=== PATIENT | female | born 1960 | race African-American/Black ===

== ENCOUNTER 2017-02-05 11:36 | Emergency (ER) | payer BC, MEDICAID ==
[~2017-02-05] VITALS: Ht 152.4 cm; Wt 45.0 kg
[2017-02-05] MEDS ORDERED: KETOROLAC 60MG/2ML VIAL IM ONE (13:00)
[2017-02-05] MEDS ORDERED: MECLIZINE 25MG TABLET PO ONE (13:00)
[2017-02-05 13:24] LABS: BASOPHILS % 0.6 % (0.0-2.0); EOSINOPHILS % 0.9 % (0.0-5.0); HEMATOCRIT. 36.8 % (36.0-48.0); HEMOGLOBIN. 12.3 g/dL (12.0-16.0); LYMPHOCYTES % 35.7 % (20.0-50.0); MEAN CORPUSCULAR HEMOGLOBIN 30.8 pg (28.0-32.0); MEAN PLATELET VOLUME 7.4 fl (7.4-10.4); MONOCYTES % 10.5 % (2.0-8.0); NEUTROPHILS % 52.3 % (40.0-76.0); PLATELET 155 x1000/uL (130-400); RED CELL DISTRIBUTION WIDTH 13.8 % (11.6-14.6)
[2017-02-05 13:28] LABS: CHLORIDE 103 mEq/L (98-107)
[2017-02-05] MEDS ORDERED: TRAMADOL 50MG TABLET PO ONE (13:30)
[2017-02-05 13:36] LABS: CARBON DIOXIDE 30 mEq/L (21-32)
[2017-02-05 14:32] LABS: KETONES URINE NEGATIVE (NEGATIVE); LEUKOCYTE ESTERASE URINE NEGATIVE (NEGATIVE); NITRITE URINE NEGATIVE (NEGATIVE); OCCULT BLOOD URINE NEGATIVE (NEGATIVE); PROTEIN URINE NEGATIVE (NEGATIVE); SPECIFIC GRAVITY URINE 1.044 (1.005-1.030); UROBILINOGEN URINE 0.2 E.U./dL (0.2-1.0)
[2017-02-05 14:37] LABS: CLARITY URINE SL HAZY (CLEAR); COLOR URINE YELLOW (YELLOW)
[2017-02-05] MEDS ORDERED: SODIUM CHLORIDE 0.9% 1,000 ML IV ONE (15:09)
[2017-02-05 15:15] VITALS: BP 135/86
[2017-02-05] MEDS ORDERED: INSULIN REGULAR (HUMULIN R) 300UNITS/3ML SUBCUT ONE (15:15)
== END 2017-02-05 18:35 | disposition home or self-care (01) ==
LOC: ER 13:56
DX: B02.9 Zoster without complications (principal); H81.10 Benign paroxysmal vertigo, unspecified ear; M25.562 Pain in left knee; F17.200 Nicotine dependence, unspecified, uncomplicated; I10 Essential (primary) hypertension; E11.9 Type 2 diabetes mellitus without complications
CPT/HCPCS: 36415; 73562; 80053; 81001; 81025; 82962; 85025; 96360; 96361; 96372; 99285; J1815; J7030; Z7610; J8597

== ENCOUNTER 2017-07-30 07:50 | Emergency (ER) | payer SELFPAY ==
[~2017-07-30] VITALS: Ht 152.4 cm; Wt 53.0 kg
[2017-07-30] MEDS ORDERED: TRAMADOL 50MG TABLET PO ONE (08:15)
[2017-07-30 08:55] VITALS: BP 146/72
== END 2017-07-30 09:29 | disposition home or self-care (01) ==
LOC: ER 08:55
DX: M77.31 Calcaneal spur, right foot (principal); F41.9 Anxiety disorder, unspecified; I10 Essential (primary) hypertension; E11.9 Type 2 diabetes mellitus without complications; Z98.890 Other specified postprocedural states
CPT/HCPCS: 73630; 99284; Z7610

== ENCOUNTER 2018-03-14 13:56 | Emergency (ER) | payer SELFPAY | END 2018-03-14 16:32 | disposition left against medical advice (07) | LOC: ER 13:56 | DX: M79.601 Pain in right arm (principal); Z53.21 Procedure and treatment not carried out due to patient leaving prior to being seen by health care provider ==

== ENCOUNTER 2018-10-19 15:54 | Inpatient (IN) | payer OTHER ==
[~2018-10-19] VITALS: Ht 157.5 cm; Wt 51.7 kg
[2018-10-19] MEDS ORDERED: KETOROLAC 30MG/ML VIAL IV STA (23:01)
[2018-10-19] MEDS ORDERED: SODIUM CHLORIDE 0.9% 1,000 ML IV ONE (23:01)
[2018-10-19 23:32] LABS: BASOPHILS % 0.4 % (0.0-2.0); HEMATOCRIT. 39.1 % (36.0-48.0); HEMOGLOBIN. 13.3 g/dL (12.0-16.0); LYMPHOCYTES % 7.8 % (20.0-50.0); MEAN CORPUSCULAR HEMOGLOBIN 31.4 pg (28.0-32.0); MEAN CORPUSCULAR VOLUME 92.3 fL (81.0-99.0); MEAN PLATELET VOLUME 7.5 fl (7.4-10.4); NEUTROPHILS % 84.8 % (40.0-76.0); PLATELET 199 x1000/uL (130-400); RED BLOOD CELL COUNT 4.24 mill/uL (4.2-5.4)
[2018-10-19 23:37] LABS: CHLORIDE 103 mEq/L (98-107)
[2018-10-19 23:46] LABS: BETA HYDROXYBUTYRATE 1.6 mMol/L (0.0-0.3)
[2018-10-20] MEDS ORDERED: PIPERACILLIN/TAZOBACTAM 3.375GM/50ML PREMIX IV ONE (01:15)
[2018-10-20 01:52] LABS: CLARITY URINE TURBID (CLEAR); COLOR URINE YELLOW (YELLOW); KETONES URINE 3+ (NEGATIVE); LEUKOCYTE ESTERASE URINE 1+ (NEGATIVE); NITRITE URINE NEGATIVE (NEGATIVE); OCCULT BLOOD URINE 2+ (NEGATIVE); PH URINE 5.5 (4.5-8.0); PROTEIN URINE 1+ (NEGATIVE); UROBILINOGEN URINE 0.2 E.U./dL (0.2-1.0)
[2018-10-20] MEDS ORDERED: PIPERACILLIN/TAZ 3.375G PREMIX 50 ML IV NR (02:15)
[2018-10-20] MEDS ORDERED: IOHEXOL-300 100 ML BOTTLE ONE (02:24)
[2018-10-20] MEDS ORDERED: FENTANYL CITRATE/PF 50MCG/ML 2ML VIAL ONE ×3 (05:35→07:14)
[2018-10-20] MEDS ORDERED: MIDAZOLAM HCL 2 MG/2 ML VIAL ONE ×2 (05:35→07:14)
[2018-10-20] MEDS ORDERED: PROPOFOL 200MG/20ML VIAL IV ONE ×2 (05:35→07:14)
[2018-10-20] MEDS ORDERED: ROCURONIUM BROMIDE 10MG/ML VIAL 5ML IV ONE (05:36)
[2018-10-20] MEDS ORDERED: LIDOCAINE HCL/PF 1% 10 MG/ML 5ML VIAL ONE (05:36)
[2018-10-20] MEDS ORDERED: FENTANYL CITRATE/PF 50MCG/ML 2ML VIAL IV PRN (05:45)
[2018-10-20] MEDS ORDERED: HYDROMORPHONE HCL/PF 2MG/ML CPJ IV PRN ×2 (05:45→07:45)
[2018-10-20] MEDS ORDERED: ONDANSETRON HCL 4MG/2ML INJ IV PRN ×3 (05:45→07:45)
[2018-10-20] MEDS ORDERED: SKIN ADHESIVE 0.7 GM EA TOP ONE (06:03)
[2018-10-20] MEDS ORDERED: BUPIVACAINE HCL 0.5% (5MG/ML) 50ML ONE (06:03)
[2018-10-20] MEDS ORDERED: DEXT 5%/0.45% NACL KCL 20MEQ/L 1,000 ML IV SCH (06:19)
[2018-10-20] MEDS ORDERED: MORPHINE SULFATE 2 MG/ML CPJ (NOT FOR IM USE) IV PRN (06:30)
[2018-10-20] MEDS ORDERED: HYDROCODONE/ACETAMINOPHEN 5/325MG TABLET PO PRN ×3 (06:30→06:45)
[2018-10-20] MEDS ORDERED: MORPHINE SULFATE 4 MG/ML CPJ (NOT FOR IM USE) IV PRN ×3 (06:30→06:45)
[2018-10-20] MEDS ORDERED: NEOSTIGMINE METHYLSULFATE 1MG/ML 10 ML VIAL ONE (06:56)
[2018-10-20] MEDS ORDERED: GLYCOPYRROLATE 0.2 MG/ML 2ML VIAL ONE (06:56)
[2018-10-20 08:00] VITALS: BP 126/66
[2018-10-20 10:00] VITALS: BP 126/66
[2018-10-20 12:00] VITALS: BP 95/48
[2018-10-20] MEDS ORDERED: DEXTROSE 50% WATER 50ML SYRINGE IV PRN (14:00)
[2018-10-20] MEDS ORDERED: SODIUM CHLORIDE 0.9% INJ 3ML FLUSH IVF SCH (14:00)
[2018-10-20] MEDS: DEXT 5%/0.45% NACL KCL 20MEQ/L 1,000 ML IV SCH (15:22)
[2018-10-20] MEDS: PIPERACILLIN/TAZ 3.375G PREMIX 50 ML IV SCH ×2 (15:22→21:07)
[2018-10-20] MEDS: SODIUM CHLORIDE 0.9% INJ 3ML FLUSH IVF SCH ×2 (15:31→22:17)
[2018-10-20 16:43] LABS: HEMATOCRIT 38.6 % (36.0-48.0); HEMOGLOBIN 12.9 g/dL (12.0-16.0); MEAN CORPUSCULAR HEMOGLOBIN 31.6 pg (28.0-32.0); MEAN CORPUSCULAR VOLUME 94.3 fL (81.0-99.0); PLATELET 173 x1000/uL (130-400); RED BLOOD CELL COUNT 4.09 mill/uL (4.2-5.4); RED CELL DISTRIBUTION WIDTH 12.9 % (11.6-14.6)
[2018-10-20 16:57] LABS: CHLORIDE 106 mEq/L (98-107)
[2018-10-20] MEDS: BLOOD SUGAR DIAGNOSTIC STRIP TEST SCH ×2 (17:19→21:06)
[2018-10-20] MEDS: INSULIN LISPRO 100 UNITS/ML SUBCUT SCH ×2 (17:31→22:13)
[2018-10-20] MEDS: HYDROCODONE/ACETAMINOPHEN 5/325MG TABLET PO PRN (21:07)
[2018-10-21] VITALS: BP 104/52
[2018-10-21 04:00] VITALS: BP 87/47
[2018-10-21] MEDS: PIPERACILLIN/TAZ 3.375G PREMIX 50 ML IV SCH ×3 (05:40→21:33)
[2018-10-21] MEDS: SODIUM CHLORIDE 0.9% INJ 3ML FLUSH IVF SCH ×3 (05:41→21:35)
[2018-10-21] MEDS: BLOOD SUGAR DIAGNOSTIC STRIP TEST SCH ×4 (06:24→21:00)
[2018-10-21 08:00] VITALS: BP 114/55
[2018-10-21] MEDS: INSULIN LISPRO 100 UNITS/ML SUBCUT SCH ×4 (08:21→21:00)
[2018-10-21] MEDS: HYDROCODONE/ACETAMINOPHEN 5/325MG TABLET PO PRN ×3 (09:09→21:35)
[2018-10-21] MEDS ORDERED: INSULIN GLARGINE UD 100 UNITS/ML SYR SUBCUT SCH (11:00)
[2018-10-21] MEDS: DEXT 5%/0.45% NACL KCL 20MEQ/L 1,000 ML IV SCH (11:35)
[2018-10-21 11:39] LABS: HEMATOCRIT. 34.9 % (36.0-48.0); HEMOGLOBIN. 11.5 g/dL (12.0-16.0); MEAN CORPUSCULAR HEMOGLOBIN 30.6 pg (28.0-32.0); MEAN CORPUSCULAR VOLUME 93.1 fL (81.0-99.0); MEAN PLATELET VOLUME 7.7 fl (7.4-10.4); PLATELET 165 x1000/uL (130-400); RED BLOOD CELL COUNT 3.75 mill/uL (4.2-5.4); RED CELL DISTRIBUTION WIDTH 13.3 % (11.6-14.6)
[2018-10-21 11:49] LABS: CHLORIDE 106 mEq/L (98-107)
[2018-10-21 11:56] VITALS: BP 92/54
[2018-10-21 12:07] LABS: PLATELET ESTIMATE NORMAL
[2018-10-21] MEDS: METRONIDAZOLE 500MG TABLET PO SCH ×2 (15:31→21:35)
[2018-10-21 20:00] VITALS: BP 105/60
[2018-10-21] MEDS: ENOXAPARIN 60MG/0.6ML SYR SUBCUT SCH (22:59)
[2018-10-22] VITALS: BP 97/53
[2018-10-22 04:00] VITALS: BP 107/57
[2018-10-22] MEDS: ONDANSETRON HCL 4MG/2ML INJ IV PRN ×2 (05:37→11:35)
[2018-10-22] MEDS: METRONIDAZOLE 500MG TABLET PO SCH ×2 (05:37→22:20)
[2018-10-22] MEDS: BLOOD SUGAR DIAGNOSTIC STRIP TEST SCH ×4 (05:37→21:00)
[2018-10-22] MEDS: SODIUM CHLORIDE 0.9% INJ 3ML FLUSH IVF SCH ×3 (05:38→23:18)
[2018-10-22] MEDS: PIPERACILLIN/TAZ 3.375G PREMIX 50 ML IV SCH ×3 (05:38→22:12)
[2018-10-22 06:53] LABS: CHLORIDE 104 mEq/L (98-107)
[2018-10-22 07:17] LABS: HDL CHOLESTEROL 47 mg/dL (40-59); LDL CHOLESTEROL 51 mg/dL (5-100)
[2018-10-22 07:19] LABS: T4 FREE 1.52 ng/dL (0.76-1.46)
[2018-10-22 07:39] LABS: HEMATOCRIT 32.6 % (36.0-48.0); HEMOGLOBIN 11.2 g/dL (12.0-16.0); MEAN CORPUSCULAR HEMOGLOBIN 31.9 pg (28.0-32.0); MEAN CORPUSCULAR VOLUME 92.7 fL (81.0-99.0); PLATELET 166 x1000/uL (130-400); RED BLOOD CELL COUNT 3.51 mill/uL (4.2-5.4)
[2018-10-22] MEDS: INSULIN LISPRO 100 UNITS/ML SUBCUT SCH ×4 (07:50→21:00)
[2018-10-22 08:00] VITALS: BP 108/64
[2018-10-22] MEDS ORDERED: ENOXAPARIN 40MG/0.4ML SYR SUBCUT SCH (09:00)
[2018-10-22] MEDS: ENOXAPARIN 60MG/0.6ML SYR SUBCUT SCH ×2 (11:36→22:14)
[2018-10-22 12:00] VITALS: BP 113/63
[2018-10-22] MEDS ORDERED: DIPHENHYDRAMINE 50MG/ML VIAL IV PRN (12:15)
[2018-10-22 13:14] LABS: HEMATOCRIT. 34.6 % (36.0-48.0); HEMOGLOBIN. 11.7 g/dL (12.0-16.0); MEAN CORPUSCULAR HEMOGLOBIN 31.2 pg (28.0-32.0); MEAN CORPUSCULAR VOLUME 92.8 fL (81.0-99.0); PLATELET 176 x1000/uL (130-400); RED BLOOD CELL COUNT 3.73 mill/uL (4.2-5.4); RED CELL DISTRIBUTION WIDTH 13.1 % (11.6-14.6)
[2018-10-22 13:44] LABS: PLATELET ESTIMATE NORMAL
[2018-10-22] MEDS ORDERED: VANCOMYCIN 1 G PREMIX 200 ML IV SCH (14:00)
[2018-10-22] MEDS: FLUCONAZOLE 100MG TABLET PO SCH (17:23)
[2018-10-22 20:00] VITALS: BP 101/53
[2018-10-22] MEDS: VANCOMYCIN 750 MG PREMIX 150 ML IV SCH (23:18)
[2018-10-22] MEDS: DEXT 5%/0.45% NACL KCL 20MEQ/L 1,000 ML IV SCH ×2 (23:19→23:43)
[2018-10-22 23:33] VITALS: BP 126/61
[2018-10-23 04:05] VITALS: BP 115/63
[2018-10-23] MEDS: PIPERACILLIN/TAZ 3.375G PREMIX 50 ML IV SCH ×3 (05:26→22:04)
[2018-10-23] MEDS: SODIUM CHLORIDE 0.9% INJ 3ML FLUSH IVF SCH ×3 (05:27→22:04)
[2018-10-23] MEDS: METRONIDAZOLE 500MG TABLET PO SCH ×3 (05:27→22:04)
[2018-10-23] MEDS: BLOOD SUGAR DIAGNOSTIC STRIP TEST SCH ×4 (06:10→22:11)
[2018-10-23 06:38] LABS: PROTHROMBIN TIME 9.9 sec (9.1-11.1)
[2018-10-23 06:46] LABS: HEMATOCRIT 32.9 % (36.0-48.0); HEMOGLOBIN 11.1 g/dL (12.0-16.0); MEAN CORPUSCULAR HEMOGLOBIN 31.3 pg (28.0-32.0); MEAN CORPUSCULAR VOLUME 92.4 fL (81.0-99.0); PLATELET 190 x1000/uL (130-400); RED BLOOD CELL COUNT 3.56 mill/uL (4.2-5.4); RED CELL DISTRIBUTION WIDTH 13.1 % (11.6-14.6)
[2018-10-23 08:00] VITALS: BP 127/64
[2018-10-23] MEDS: INSULIN LISPRO 100 UNITS/ML SUBCUT SCH ×4 (08:21→22:16)
[2018-10-23] MEDS: FLUCONAZOLE 100MG TABLET PO SCH (08:21)
[2018-10-23 08:42] LABS: CHLORIDE 102 mEq/L (98-107)
[2018-10-23] MEDS: ENOXAPARIN 60MG/0.6ML SYR SUBCUT SCH ×2 (09:41→22:03)
[2018-10-23] MEDS: DEXT 5%/0.45% NACL KCL 20MEQ/L 1,000 ML IV SCH ×2 (09:43→19:30)
[2018-10-23] MEDS: VANCOMYCIN 750 MG PREMIX 150 ML IV SCH ×2 (10:20→23:56)
[2018-10-23 12:00] VITALS: BP 128/65
[2018-10-23 16:00] VITALS: BP 133/66
[2018-10-23 20:00] VITALS: BP 112/64
[2018-10-24] VITALS: BP 114/60
[2018-10-24 04:00] VITALS: BP 124/57
[2018-10-24] MEDS: DEXT 5%/0.45% NACL KCL 20MEQ/L 1,000 ML IV SCH (05:30)
[2018-10-24] MEDS: SODIUM CHLORIDE 0.9% INJ 3ML FLUSH IVF SCH (06:00)
[2018-10-24] MEDS: PIPERACILLIN/TAZ 3.375G PREMIX 50 ML IV SCH (07:07)
[2018-10-24] MEDS: METRONIDAZOLE 500MG TABLET PO SCH (07:07)
[2018-10-24] MEDS: BLOOD SUGAR DIAGNOSTIC STRIP TEST SCH (07:11)
[2018-10-24] MEDS: INSULIN LISPRO 100 UNITS/ML SUBCUT SCH (07:18)
[2018-10-24 07:57] VITALS: BP 143/61
[2018-10-24 08:00] VITALS: BP 143/61
[2018-10-24] MEDS: FLUCONAZOLE 100MG TABLET PO SCH ×2 (09:00→09:03)
[2018-10-24] MEDS: ENOXAPARIN 60MG/0.6ML SYR SUBCUT SCH (09:03)
== END 2018-10-24 09:50 | disposition short-term general hospital (02) | DRG 853 ==
LOC: ER 15:54 → 6EST 10-20 01:18 → ER 10-20 05:51 → ENRESERV 10-20 06:48 → 6WST 10-22 22:45
PROVIDERS: ADMIT Internal Medicine; ATTEND Internal Medicine
PROC: 0DTJ4ZZ Resection of Appendix, Percutaneous Endoscopic Approach (ICD-10-PCS; principal; 2018-10-20)
DX: A41.9 Sepsis, unspecified organism (principal); K35.32 Acute appendicitis with perforation, localized peritonitis, and gangrene, without abscess; N39.0 Urinary tract infection, site not specified; E11.9 Type 2 diabetes mellitus without complications; E86.0 Dehydration; G89.29 Other chronic pain; G89.18 Other acute postprocedural pain; I10 Essential (primary) hypertension; Z79.4 Long term (current) use of insulin
CPT/HCPCS: 36415; 72170; 74018; 74177; 80048; 80061; 80202; 82010; 82962; 83036; 84132; 84439; 84443; 85027; 87076; 88304; 93970; 96374; 96375; 99285; J1650; J1815; J1885; J2250; J2270; J2405; J2543; J2704; J2710; J3010; J3370; J3490; J7030; Q9967